=== PATIENT | male | born 1990 ===

== ENCOUNTER 2017-07-24 05:02 | Emergency (ER) | payer SELFPAY, OTHER ==
[2017-07-24] MEDS: HYDROCODONE/APAP (10/325) TAB PO (05:58)
[2017-07-24] MEDS: ONDANSETRON (ODT) 4 MG TAB ODT (05:58)
[2017-07-24 06:32] LABS: URINE BLOOD (Dip) POC Trace-intact (NEGATIVE); URINE GLUCOSE (Dip) POC Negative (NEGATIVE); URINE KETONES (Dip) POC Negative (NEGATIVE); URINE LEUKOCYTE EST (Dip) POC Trace (NEGATIVE); URINE NITRITE (Dip) POC Negative (NEGATIVE); URINE TOTAL PROTEIN POC Negative (NEGATIVE)
[2017-07-24] MEDS: SOD CHLORIDE 0.9% 1,000 ML IV (06:50)
[2017-07-24 06:57] LABS: ADD MAN DIFF? NO
[2017-07-24] MEDS: BARIUM SULF 2% 450 ML BTL (BERRY SMOOTHIE) PO (06:57)
[2017-07-24 06:59] LABS: BASOPHIL # 0.1 10^3/ul (0.0-0.1); BASOPHILS % 1.1 % (0.0-2.0); EOSINOPHILS # 0.3 10^3/ul (0.0-0.5); EOSINOPHILS % 3.2 % (0.0-7.0); HEMATOCRIT 45.7 % (42.0-52.0); HEMOGLOBIN 15.8 g/dl (14.0-18.0); LYMPHOCYTES % 44.9 % (15.0-51.0); MEAN CORPUSCULAR HEMOGLOBIN 30.4 pg (29.0-33.0); MEAN CORPUSCULAR HGB CONC 34.6 g/dl (32.0-37.0); MEAN CORPUSCULAR VOLUME 88.1 fl (82.0-101.0); MONOCYTE # 0.7 10^3/ul (0.3-0.9); NEUTROPHIL # 3.8 10^3/ul (1.6-7.5); NEUTROPHILS % 42.6 % (39.0-77.0); PLATELET COUNT 229 10^3/UL (140-415); RED BLOOD COUNT 5.19 10^6/ul (4.70-6.10); RED CELL DISTRIBUTION WIDTH 12.5 % (11.5-14.5)
[2017-07-24 07:16] LABS: INR 0.96; PROTIME 12.9 Sec (11.9-14.9)
[2017-07-24 07:17] LABS: PARTIAL THROMBOPLASTIN TIME 26.2 Sec (25.0-35.0)
[2017-07-24 07:18] LABS: ALANINE AMINOTRANSFERASE 39 IU/L (13-69); ALBUMIN 4.4 g/dl (3.3-4.9); ALBUMIN/GLOBULIN RATIO 1.57; ALKALINE PHOSPHATASE 55 IU/L (42-121); ANION GAP 16 (8-16); ASPARTATE AMINO TRANSFERASE 22 IU/L (15-46); BILIRUBIN,INDIRECT 0.1 mg/dl (0-1.1); BILIRUBIN,TOTAL 0.1 mg/dl (0.2-1.3); BLOOD UREA NITROGEN 12 mg/dl (7-20); CALCIUM 9.8 mg/dl (8.4-10.2); CARBON DIOXIDE 26 mmol/L (21-31); CHLORIDE 102 mmol/L (97-110); CREATININE 0.88 mg/dl (0.61-1.24); GLUCOSE 98 mg/dl (70-220); SODIUM 140 mmol/L (135-144); TOTAL PROTEIN 7.2 g/dl (6.1-8.1)
[2017-07-24] MEDS: SOD CHLORIDE 0.9% 100 ML (08:17)
[2017-07-24] MEDS: IOHEXOL 300MG/ML 150 ML BTL (08:17)
[2017-07-24] MEDS: ONDANSETRON 4 MG INJ IV (08:51)
[2017-07-24] MEDS: KETOROLAC 30 MG INJ IV (08:51)
[2017-07-24] MEDS: FAMOTIDINE 20 MG INJ IV (08:51)
== END 2017-07-24 09:41 | disposition home or self-care (01) ==
LOC: E/R 05:02
DX: N45.1 Epididymitis (principal); R11.2 Nausea with vomiting, unspecified; F17.210 Nicotine dependence, cigarettes, uncomplicated
CPT/HCPCS: 74177; 76870; 80053; 81003; 85025; 85610; 85730; 96374; 96375; 99285-25